=== PATIENT | male | born 1965 | race African-American/Black ===

== ENCOUNTER 2021-04-04 11:19 | Emergency (ER) | payer OTHER ==
[~2021-04-04] VITALS: Ht 180.3 cm; Wt 146.0 kg
[2021-04-04] MEDS ORDERED: MORPHINE SULFATE 4 MG/ML CPJ (NOT FOR IM USE) IV ONE (11:45)
[2021-04-04] MEDS ORDERED: FUROSEMIDE 40MG/4ML VIAL IVP ONE (11:45)
[2021-04-04 11:55] LABS: BASOPHILS % 2.4 % (0.0-2.0); EOSINOPHILS % 1.5 % (0.0-5.0); HEMATOCRIT. 36.8 % (42.0-52.0); HEMOGLOBIN. 12.2 g/dL (14.0-18.0); LYMPHOCYTES % 29.7 % (20.0-50.0); MEAN CORPUSCULAR HEMOGLOBIN 27.1 pg (28.0-32.0); MEAN CORPUSCULAR VOLUME 81.5 fL (80.0-94.0); MEAN PLATELET VOLUME 7.3 fl (7.4-10.4); NEUTROPHILS % 57.4 % (40.0-76.0); PLATELET 347 x1000/uL (130-400); RED BLOOD CELL COUNT 4.52 mill/uL (4.7-6.1); RED CELL DISTRIBUTION WIDTH 16.2 % (11.6-14.6)
[2021-04-04 12:04] LABS: CHLORIDE 105 mEq/L (98-107)
[2021-04-04 13:51] VITALS: BP 158/74
== END 2021-04-04 14:14 | disposition short-term general hospital (02) ==
LOC: ER 11:19
DX: I11.0 Hypertensive heart disease with heart failure (principal); I50.9 Heart failure, unspecified; I25.2 Old myocardial infarction; I10 Essential (primary) hypertension; J44.1 Chronic obstructive pulmonary disease with (acute) exacerbation; E11.9 Type 2 diabetes mellitus without complications; Z20.822 Contact with and (suspected) exposure to COVID-19; Z86.73 Personal history of transient ischemic attack (TIA), and cerebral infarction without residual deficits
CPT/HCPCS: 36415; 71045; 80053; 82962; 83880; 84484; 85025; 87426; 93005; 96374; 96375; 99285; J1940; J2270

== ENCOUNTER 2023-06-25 13:06 | Emergency (ER) | payer OTHER ==
[~2023-06-25] VITALS: Ht 180.3 cm; Wt 137.0 kg
[2023-06-25 13:09] VITALS: O2SAT 98
[2023-06-25] MEDS ORDERED: KETOROLAC 30MG/ML VIAL IV STA (13:29)
[2023-06-25 14:12] LABS: BASOPHILS % 1.8 % (0.0-2.0); EOSINOPHILS % 2.3 % (0.0-5.0); HEMATOCRIT. 39.1 % (42.0-52.0); HEMOGLOBIN. 13.2 g/dL (14.0-18.0); LYMPHOCYTES % 20.6 % (20.0-50.0); MEAN CORPUSCULAR HEMOGLOBIN 28.2 pg (28.0-32.0); MEAN CORPUSCULAR VOLUME 83.8 fL (80.0-94.0); MEAN PLATELET VOLUME 7.1 fl (7.4-10.4); MONOCYTES % 6.3 % (2.0-8.0); PLATELET 298 x1000/uL (130-400); RED BLOOD CELL COUNT 4.67 mill/uL (4.7-6.1); RED CELL DISTRIBUTION WIDTH 14.6 % (11.6-14.6)
[2023-06-25 14:31] LABS: CHLORIDE 105 mEq/L (98-107)
[2023-06-25 15:43] LABS: INR 1.1; PROTHROMBIN TIME 12.1 sec (9.6-11.0)
[2023-06-25] MEDS ORDERED: KETOROLAC 30MG/ML VIAL IV SCH (16:15)
[2023-06-25] MEDS ORDERED: MORPHINE SULFATE 4 MG/ML CPJ (NOT FOR IM USE) IV ONE (16:45)
[2023-06-25 19:19] LABS: CLARITY URINE CLEAR (CLEAR); COLOR URINE YELLOW (YELLOW); KETONES URINE NEGATIVE (NEGATIVE); LEUKOCYTE ESTERASE URINE NEGATIVE (NEGATIVE); NITRITE URINE NEGATIVE (NEGATIVE); OCCULT BLOOD URINE NEGATIVE (NEGATIVE); PH URINE 7.5 (4.5-8.0); PROTEIN URINE NEGATIVE (NEGATIVE); SPECIFIC GRAVITY URINE 1.012 (1.005-1.030)
[2023-06-25 21:35] VITALS: BP 156/98; PULSE 89; RESP 16; TEMP 98.3
== END 2023-06-25 21:36 | disposition home or self-care (01) ==
LOC: ER 13:42 → CANBEDREQ 06-26 21:47
DX: R42 Dizziness and giddiness (principal); R53.1 Weakness; J44.9 Chronic obstructive pulmonary disease, unspecified; I25.10 Atherosclerotic heart disease of native coronary artery without angina pectoris; E11.9 Type 2 diabetes mellitus without complications; K21.9 Gastro-esophageal reflux disease without esophagitis; I10 Essential (primary) hypertension; I25.2 Old myocardial infarction; Z86.73 Personal history of transient ischemic attack (TIA), and cerebral infarction without residual deficits
CPT/HCPCS: 80053; 81003; 83605; 85025; 85610; 87040; 87086; 36415; 84145; 71045; 70450; 72125; 93005; 96374; 96375; 99285; J1885; J2270; Z7610 ×4